=== PATIENT | female | born 1950 | race Caucasian/White ===

== ENCOUNTER 2020-06-28 11:40 | Emergency (ER) | payer MEDICARE, SELFPAY ==
[2020-06-28 12:15] VITALS: BP 159/103; PULSE 78; RESP 18; TEMP 36.6; O2SAT 97; BMI 17.7
--- NOTE | 2020-06-28 12:38 | XRR_ITS ---
PROCEDURE INFORMATION: Exam: XR Chest Exam date and time: 06/28/2020 12:56 PM Age: 69 years old Clinical indication: Chest pain; Type not specified; Prior surgery; Surgery type: Bakari, open heart, lung; Patient HX: HX of lung cancer, pain in chest and abdomen, bloody stools; Additional info: Upper abd/chest wall pain TECHNIQUE: Imaging protocol: XR of the chest. Views: 1 view. COMPARISON: CR Chest 1 [place] [id number] 11/18/2017 8:44 PM FINDINGS: Tubes, catheters and devices: A cardiac loop recorder projects on the left mid lung zone. Lungs: There is bilateral overinflation of the lungs with flattening of the diaphragm indicating emphysema. No pneumonia is seen. Pleural spaces: Unremarkable. No pleural effusion. No pneumothorax. Heart/Mediastinum: The patient has undergone coronary bypass surgery. The heart is not enlarged for the AP projection. Bones/joints: Unremarkable. Soft tissues: Unremarkable XR/XR chest 1V portable [id number] IMPRESSION: 1. Pulmonary emphysema. 2. No acute abnormality is seen in the chest.
--- NOTE | 2020-06-28 12:38 | XRR_ITS ---
PROCEDURE INFORMATION: Exam: XR Abdomen Exam date and time: 06/28/2020 12:56 PM Age: 69 years old Clinical indication: Prior surgery; Surgery type: Bakari, open heart, lung; Patient HX: HX of lung cancer, chest and abdomen pain, bloody stools; Additional info: Bloody stool TECHNIQUE: Imaging protocol: XR of the abdomen. Views: Frontal supine view of the abdomen. 1 View. COMPARISON: No relevant prior studies available. FINDINGS: Gastrointestinal tract: Normal. No bowel dilation. Vasculature: There is atherosclerotic calcification of the aorta and iliac arteries. Phleboliths are present in the left side of the pelvis. Bones/joints: Unremarkable. XR/XR KUB portable [id number] IMPRESSION: No acute abnormalities are seen.
--- NOTE | 2020-06-28 13:01 | ED_ITS ---
HPI - Back Pain/Injury General: Chief Complaint: Back Pain/Injury Stated Complaint: SEVERE BACK/LUNG PAIN Time Seen by Provider: 06/28/20 12:33 History of Present Illness: HPI Narrative: 69 yo female presents with severe back/lung pain. pt states this has been going on quite a while, but over last 4 days just cant take it anymore pt also states she is vomiting blood and having bloody stools. pt states her lung pain is right sided and was told she has lung cancer pt states she moved back into the area about 1 month ago and does not have a primary care provider. pt states she needs an antibiotic to make her lungs, bloody stool/vomiting better since she frequently qets this. pt also had numerous other long standing complaints. Associated symptoms: Deny abdominal pain, dysuria or fever(s) Review of Systems Const: Reports: other (See HPI ); Denies: fever(s) Eyes: Denies: change in vision Card: Reports: chest pain (chest wall ); Denies: irregular heart rhythm Resp: Denies: dyspnea GI: Reports: hematemesis and hematochezia; Denies: abdominal pain : Reports: flank pain; Denies: difficulty voiding or dysuria Skin/Breast: Denies: rash Neuro: Denies: headache(s) Physical Exam Const: COMMON NORMALS: patient oriented x3 and alert GENERAL APPEARANCE: ill appearing (chronic ), frail appearing and appears older than stated age HENMT: COMMON NORMALS: normocephalic HEAD & SCALP: normocephalic Resp: COMMON NORMALS: normal respiratory effort, No retractions and clear to auscultation bilaterally EFFORT & INSPECTION: Yes able to speak in complete sentences AUSCULTATION: clear to auscultation bilaterally Cardio: COMMON NORMALS: regular rate and regular rhythm RATE: regular rate RHYTHM: regular rhythm : COMMON NORMALS: Yes no CVA tenderness BLADDER/KIDNEY EXAM: Yes no CVA tenderness Back/Pelvis: COMMON NORMALS: no CVA tenderness Extremity: COMMON NORMALS: full ROM and capillary refill normal Neuro: COMMON NORMALS: patient oriented x3 SENSORIUM/ORIENTATION: Yes alert Psych: COMMON NORMALS: mental status grossly normal ATTITUDE: Yes aggressive Skin: COMMON NORMALS: no rashes or lesions noted GENERAL SKIN EXAM: no rashes or lesions noted Course Vital Signs: Vital signs: Vital Signs Temperature 97.9 F 06/28/20 12:15 Pulse Rate 76 06/28/20 14:09 Respiratory Rate 18 06/28/20 14:09 Blood Pressure 167/94 06/28/20 14:09 Pulse Oximetry 95 06/28/20 14:09 MDM - Back Pain/Injury MDM Narrative: Medical decision making narrative: pt with no acute finding on xrays, labs. While discussing lab results, pt very dramatic and now indicates pain in right lateral chest/abd wall and back pain. discussed with pt i will treat her with a muscle relaxant, toradol. i will prescribe her muscle relaxant, pt will need to luke care and follow with pcp for management of her chronic pain and medical conditions. Lab Data: Attestation: I reviewed the patient's lab results. Labs: Lab Results 06/28/20 06/28/20 06/28/20 Range/Units 13:00 13:00 13:00 WBC 5.6 (4.0-10.0) 10^3/ uL RBC 5.58 H (4.1-5.3) 10^6/u L Hgb 16.8 H (11.5-15.3) g/dL Hct 51.5 H (37.0-47.0) % MCV 92.3 (81-99) fL MCH 30.1 (28.0-34.0) pg MCHC 32.6 (30.0-36.0) g/dL RDW 12.5 (12.1-15.1) % Plt Count 220 (130-400) 10^3/c mm MPV 10.0 (7.4-10.4) fL Neut % (Auto) 65.1 % Lymph % (Auto) 22.0 % Petroleum % (Auto) 9.8 % Eos % (Auto) 1.8 % Baso % (Auto) 1.1 % Neut # (Auto) 3.68 (1.8-7.7) 10^3/u L Lymph # (Auto) 1.2 (0.8-4.8) 10^3/u L Petroleum # (Auto) 0.6 (0.2-0.9) 10^3/u L Eos # (Auto) 0.1 (0.0-0.8) 10^3/u L Baso # (Auto) 0.1 (0.0-0.1) 10^3/u L Nucleated RBC % (a uto) 0 % Nucleated RBCs # 0.0 /100WBC PT 12.90 (12.1-14.9) SECO NDS INR 0.94 (0.8-1.2) APTT 31.6 (23.9-36.7) SECO NDS Sodium 135 L (136-145) mmol/L Potassium 4.4 (3.5-5.1) mmol/L Chloride 98 (98-107) mmol/L Carbon Dioxide 26 (22-29) mmol/L Anion Gap 15.4 (5-19) BUN 10 (8-23) mg/dL Creatinine 0.7 (0.5-0.9) mg/dL GFR Calculation 83.2 L (90-130) mL/min Glucose 107 (65-115) mg/dL Calculated Osmolal ity 280 L (285-295) mOsm/k g Calcium 8.9 (8.5-10.5) mg/dL Total Bilirubin 0.4 (0.15-1.2) mg/dL AST 22 (0-32) U/L ALT 15 (0-33) U/L Alkaline Phosphata se 88 (35-105) IU/L Total Protein 7.0 (6.6-8.7) g/dL Albumin 4.3 (3.5-5.2) g/dL Globulin 2.7 (1.3-4.6) g/dL Lipase 40 (13-60) U/L Imaging Data^: CXR: Attestation: I personally reviewed and interpreted this imaging study as follows: My impression: no acute finding Radiologist's impression: XR/XR chest 1V portable [id number] IMPRESSION: 1. Pulmonary emphysema. 2. No acute abnormality is seen in the chest KUB: Attestation: I personally reviewed and interpreted this imaging study as follows: My impression: no acute findings Radiologist's impression: XR/XR KUB portable [id number] IMPRESSION: No acute abnormalities are seen. Discharge Plan Discharge Patient Disposition: Home Clinical Impression: Back pain Qualifiers: Back pain location: thoracic back pain Chronicity: chronic Back pain laterality: right Qualified Code(s): M54.6 - Pain in thoracic spine Condition: Stable Prescriptions: New cyclobenzaprine 5 mg tablet 5 mg PO Q8H Qty: 20 RF: 0 Discharge Orders: Discharge ED (Routine); Ordered 06/28/20 Ordered By: Sidney Raymond Discharge Diet: Usual diet Discharge Activity: Increase activity as tolerated Patient Instructions: Chronic Back Pain (ED), Opioid Safety Activity Restrictions/Additional Instructions: Please establish care with primary care provider for management of your pain and chronic medical conditions. 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
[2020-06-28 13:20] LABS: Basophils # 0.1 10^3/uL (0.0-0.1); Basophils % 1.1 %; Eosinophils # 0.1 10^3/uL (0.0-0.8); Eosinophils % 1.8 %; Hematocrit 51.5 % (37.0-47.0); Hemoglobin 16.8 g/dL (11.5-15.3); Lymphocytes # 1.2 10^3/uL (0.8-4.8); Mean Corpuscular HGB Conc 32.6 g/dL (30.0-36.0); Mean Corpuscular Hemoglobin 30.1 pg (28.0-34.0); Mean Corpuscular Volume 92.3 fL (81-99); Monocytes # 0.6 10^3/uL (0.2-0.9); Monocytes % 9.8 %; Neutrophils # 3.68 10^3/uL (1.8-7.7); Neutrophils % 65.1 %; Nucleated Red Blood Cells % 0 %; Platelet Count 220 10^3/cmm (130-400); Red Blood Count 5.58 10^6/uL (4.1-5.3); Red Cell Distribution Width 12.5 % (12.1-15.1); White Blood Count 5.6 10^3/uL (4.0-10.0)
[2020-06-28] MEDS: pantoprazole 40 mg SDV 80 MG IVP (13:22)
[2020-06-28 13:25] LABS: INR 0.94 (0.8-1.2)
[2020-06-28 13:26] LABS: Partial Thromboplastin Time 31.6 SECONDS (23.9-36.7)
[2020-06-28 13:34] LABS: Alanine Aminotransferase 15 U/L (0-33); Albumin Level 4.3 g/dL (3.5-5.2); Alkaline Phosphatase 88 IU/L (35-105); Anion Gap 15.4 (5-19); Aspartate Amino Transferase 22 U/L (0-32); Blood Urea Nitrogen 10 mg/dL (8-23); Calcium 8.9 mg/dL (8.5-10.5); Carbon Dioxide 26 mmol/L (22-29); Chloride 98 mmol/L (98-107); Globulin 2.7 g/dL (1.3-4.6); Glomerular Filtration Rate 83.2 mL/min (90-130); Glucose 107 mg/dL (65-115); Lipase 40 U/L (13-60); Osmolality Calculated 280 mOsm/kg (285-295); Potassium 4.4 mmol/L (3.5-5.1); Sodium 135 mmol/L (136-145); Total Bilirubin 0.4 mg/dL (0.15-1.2)
[2020-06-28] MEDS: ketorolac 30 mg/mL INJ IM (14:01)
[2020-06-28] MEDS: orphenadrine 30 mg/mL Inj 2 mL 60 MG IM (14:02)
[2020-06-28 14:09] VITALS: BP 167/94; PULSE 76; RESP 18; O2SAT 95
== END 2020-06-28 14:20 | disposition home or self-care (01) ==
PROVIDERS: Emergency Provider Student in an Organized Health Care Education/Training Program
DX: G89.29 Other chronic pain (principal); M54.6 Pain in thoracic spine; R07.9 Chest pain, unspecified
CPT/HCPCS: 71045; 74018; 80053; 83690; 85025; 85610; 85730; 96372; 99283; C9113; J1885; J2360

== ENCOUNTER 2021-01-24 13:08 | Outpatient (CLI) | payer MEDICARE, OTHER, SELFPAY ==
--- NOTE | 2021-01-24 13:16 | XR_ITS ---
WS: [id number] Exam: XR DEXA axial skeleton* [id number] Date/Time of Exam: 01/24/2021 1:18 PM Reason For Exam: AGE-RELATED OSTEOPOROSIS WITHOUT CURRENT PATHOLOGICAL FRACTU DEXA BONE DENSITOMETRY [employer] The L1-L4 bone mineral density measures 0.816 g/cm2. This corresponds to a T score of -3.0 and Z scor e of -0.8. Left femoral neck bone mineral density measures 0.573 g/cm2. This corresponds to T score of -3.4 and Z score of -1.6. Right femoral neck bone mineral density measures 0.571 g/cm2. This corresponds to a T score of -3.5 a nd Z score of -1.6. Mean femoral neck bone mineral density measures 0.572 g/cm2. This corresponds to a T score of -3.5 an d Z score of -1.6 XR/XR DEXA axial skeleton* [id number] IMPRESSION: Bone mineral density lies in the osteoporotic range. Refer to detailed summary .
--- NOTE | 2021-01-24 13:17 | CT_ITS ---
WS: [id number] Exam: CT chest abd pel w con* Date/Time of Exam: 01/24/2021 1:18 PM Reason For Exam: HISTORY OF MALIGNANT NEOPLASM OF LUNG, LOWER ABDOMINAL PAIN DLP: 1228.[address] scans at [facility] use at least one of these dose optimization techniques: automated e xposure control; mA and/or kV adjustment per patient size (includes targeted exams where dose is matc hed to clinical indication); or iterative reconstruction. CT scan of the chest abdomen pelvis was performed in axial plane with sagittal coronal reformatted im ages. IV contrast was administered. CT scan of the chest. Compared to prior CTA of the chest performed 11/18/2017. The lungs are fully expanded. Mild emphysematous changes are noted. No suspicious pulmonary mass or n odule. There is fibrous scarring in the right lower lobe. The thoracic aorta is normal in caliber. 11 mm short axis anterior pericarinal lymph node noted which is unchanged. No other lymphadenopathy. Th e airway is patent. Coronary artery calcifications. No pericardial or pleural effusion. No destructiv e bone lesions are seen. Signs of previous median sternotomy. Normal thyroid tissue. No destructive b one lesions are seen. CT/CT chest abd pel w con* IMPRESSION: 1. No pulmonary mass. 11 mm short axis anterior pericarinal lymph node stable i n appearance. No other adenopathy. 2. Other minor nonacute findings as detailed above. CT scan of the abdomen and pelvis with contrast. The liver, spleen, and stomach are unremarkable. Prominent main pancreatic duct noted measuring 3.8 mm at greatest diameter. No pancreatic enlargement or mass . The abdominal aorta is normal in caliber. The portal vein and IVC are patent. The kidneys function and drain normally. There is ptosis of the right kidney. No renal obstruction seen. Small partially calcified stone in the dependent gal lbladder. No sign of acute cholecystitis. Small bowel loops are not dilated. Pr ominent common bile duct at the level of the pancreatic head measuring about 1 cm greatest diameter. No significant intrahepatic ductal dilatation. Moderate a mount retained stool in the colon. There is diverticulosis of the sigmoid colon with generalized bowel wall thickening. Acute diverticulitis is not excluded. No sign of abscess. No pelvic lymphadenopathy or mass. No free air in the abdom en or pelvis. Moderately distended urinary bladder. The uterus and ovaries are surgically absent. No destructive bone lesions or significant abdominal wall de fects. IMPRESSION: 1. Sigmoid diverticuli with bowel wall thickening of the sigmoid colon which ma y indicate early acute diverticulitis. No perforation or abscess is seen. 2. Dilatation of the common bile duct measuring up to 1 cm greatest diameter an d dilatation of the main pancreatic duct measuring 3.8 mm at greatest diameter. Biliary obstruction secondary to retained stone or neoplasm might be a conside ration. 3. Small partially calcified subcentimeter stone in the dependent gallbladder. Constipation.
[2021-01-24 15:40] LABS: Blood Urea Nitrogen 18 mg/dL (8-23)
[2021-01-24] MEDS: iohexol 300 mg/mL 50 mL Btl PO (15:47)
[2021-01-24] MEDS: iodixanol 320 mg/mL 100mL Btl IV (15:48)
== END 2021-01-24 13:09 | disposition home or self-care (01) ==
PROVIDERS: Visit Provider Nurse Practitioner Family
DX: Z85.118 Personal history of other malignant neoplasm of bronchus and lung (principal); R10.30 Lower abdominal pain, unspecified; M81.0 Age-related osteoporosis without current pathological fracture; K57.30 Diverticulosis of large intestine without perforation or abscess without bleeding
CPT/HCPCS: 71260; 74177; 77080; 82565; 84520; Q9967

== ENCOUNTER 2022-12-20 09:23 | Emergency (ER) | payer MEDICARE, SELFPAY ==
[2022-12-20 09:39] VITALS: BP 137/77; PULSE 65; RESP 18; TEMP 36.4; O2SAT 94; BMI 22.6
--- NOTE | 2022-12-20 09:48 | XRR_ITS ---
PROCEDURE INFORMATION: Exam: XR Chest Exam date and time: 12/20/2022 9:57 AM Age: 72 years old Clinical indication: Cough and shortness of breath; Prior surgery; Surgery date: 6+ months; Surgery type: Open heart; Patient HX: HX of lung cancer; Additional info: Cough/congestion TECHNIQUE: Imaging protocol: Radiologic exam of the chest. Views: 1 view. COMPARISON: 1. CT chest abdpel w/*[id number] 01/24/2021 3:44 PM 2. CR XR chest 1V portable [id number] 06/28/2020 12:40 PM FINDINGS: Tubes, catheters and devices: Left chest loop recorder. Lungs: Mild peripheral right basilar scarring. No consolidation. Pleural spaces: Unremarkable. No pleural effusion. No pneumothorax. Heart/Mediastinum: Unremarkable. No cardiomegaly. Vasculature: Aortic atherosclerotic calcification. Bones/joints: Prior median sternotomy. XR/XR chest 1V portable [id number] IMPRESSION: No acute findings.
--- NOTE | 2022-12-20 09:50 | W.ED.SOB ---
HPI - SOB/Dyspnea General: Chief Complaint: Shortness of Breath/Dyspnea Stated Complaint: SOB/cough Time Seen by Provider: 12/20/22 09:25 Source: patient Mode of arrival: ambulatory Limitations: no limitations History of Present Illness: HPI Narrative: Patient is a 72-year-old female with history of COPD/emphysema currently on Trelegy and chronic everyday smoking here for complaints of dyspnea. She states she chronically has some degree of baseline dyspnea but states symptoms have worsened over the past several days. She states she normally does not wear oxygen at home. States she recently moved to the area and does not have pulmonology set up yet-states she does have PCP. As previously mentioned, patient continues to smoke daily. She states she has had increased cough/congestion. She arrives with stable vital signs satting approximately 94% on room air. She denies chest pain. She has not noted any fevers. No sick contacts. MD elicited complaint: shortness of breath Pertinent past history: COPD and pneumonia Onset (ago): day(s) Timing: constant Severity: moderate Exacerbating factors: exertion Relieving factors: nothing Known history of: COPD and recurrent pneumonia Associated symptoms: Reports chest congestion; Deny abdominal pain, chest pain, dizziness, fever(s), hemoptysis, lightheadedness, orthopnea, palpitations or syncope Treatment prior to arrival: none Related Data: Home oxygen amount: none Review of Systems Const: Denies: fever(s), chills, body aches, fatigue or malaise Card: Reports: dyspnea on exertion (chronic); Denies: chest pain, palpitations, irregular heart rhythm, swelling of feet/ankles, lightheadedness, syncope, pre-syncope, orthopnea, leg pain with exertion or acrocyanosis Resp: Reports: dyspnea (acute on chronic), productive cough and chest congestion; Denies: pain on inspiration, change in phlegm color or hemoptysis GI: Denies: abdominal pain Musc: Denies: back pain Neuro: Denies: dizziness Physical Exam Const: COMMON NORMALS: no acute distress, patient oriented x3, no limitations and alert GENERAL APPEARANCE: cooperative NUTRITIONAL APPEARANCE: thin ORIENTATION/CONSCIOUSNESS: Yes awake, Yes oriented to person, Yes oriented to place and Yes oriented to time Chest: COMMONS NORMALS: normal inspection of the chest and normal palpation of entire chest wall Resp: COMMON NORMALS: normal respiratory effort EFFORT & INSPECTION: Yes able to speak in complete sentences AUSCULTATION: rhonchi (somewhat cleared with coughing) throughout and wheezes Cardio: COMMON NORMALS: regular rate and regular rhythm RATE: regular rate RHYTHM: regular rhythm Extremity: COMMON NORMALS: no clubbing, cyanosis or edema, no calf tenderness and no pedal edema GENERAL: Yes normal exam except as noted Neuro: COMMON NORMALS: patient oriented x3 SENSORIUM/ORIENTATION: Yes alert, Yes oriented to person, Yes oriented to place and Yes oriented to time Course Vital Signs: Vital signs: Vital Signs Temperature 97.5 F L 12/20/22 09:39 Pulse Rate 59 L 12/20/22 10:34 Respiratory Rate 20 H 12/20/22 10:34 Blood Pressure 137/77 12/20/22 09:39 Pulse Oximetry 94 12/20/22 10:34 Oxygen Delivery Me thod Room Air 12/20/22 10:34 MDM - SOB/Dyspnea Medical Decision Making Patient reporting improvement after breathing treatment/dexamethasone. CXR is normal. Blood work is nonactionable. We will place her on steroids and Levaquin for a COPD exacerbation. We will get her set up with pulmonology for treatment/maintenance of her COPD/emphysema. She also states she will follow-up with primary care. Return ED precautions given. Lab Data 12/20/22 09:55 12/20/22 09:55 Labs/Radiology: Radiology Impressions Chest X-Ray 12/20/22 09:48 IMPRESSION: No acute findings. Laboratory Results WBC 14.40 10^3/uL (3.29-11.43) H 12/20/22 09:55 RBC 6.08 10^6/uL (3.85-5.65) H 12/20/22 09:55 Hgb 17.70 g/dL (11.27-16.99) H 12/20/22 09:55 Hct 55.1 % (36-47) H 12/20/22 09:55 MCV 90.6 fl (85-98) 12/20/22 09:55 MCH 29.1 pg (27-33) 12/20/22 09:55 MCHC 32.1 g/dL (30-55) 12/20/22 09:55 RDW 14.6 % (12.1-15.1) 12/20/22 09:55 Plt Count 300 10^3/cmm (157-399) 12/20/22 09:55 MPV 10.3 fL (7.4-10.4) 12/20/22 09:55 Neut % (Auto) 79.9 % 12/20/22 09:55 Lymph % (Auto) 10.6 % 12/20/22 09:55 [place] % (Auto) 5.9 % 12/20/22 09:55 Eos % (Auto) 2.6 % 12/20/22 09:55 Baso % (Auto) 0.7 % 12/20/22 09:55 Neut # (Auto) 11.51 10^3/uL (1.8-7.7) H 12/20/22 09:55 Lymph # (Auto) 1.5 10^3/uL (0.8-4.8) 12/20/22 09:55 [place] # (Auto) 0.9 10^3/uL (0.2-0.9) 12/20/22 09:55 Eos # (Auto) 0.4 10^3/uL (0.0-0.8) 12/20/22 09:55 Baso # (Auto) 0.1 10^3/uL (0.0-0.1) 12/20/22 09:55 Nucleated RBC % (auto) 0 % 12/20/22 09:55 Nucleated RBCs # 0.0 /100WBC 12/20/22 09:55 Sodium 136 mmol/L (136-145) 12/20/22 09:55 Potassium 3.8 mmol/L (3.5-5.1) 12/20/22 09:55 Chloride 92 mmol/L (98-107) L 12/20/22 09:55 Carbon Dioxide 34 mmol/L (22-29) H 12/20/22 09:55 Anion Gap 13.8 (5-19) 12/20/22 09:55 BUN 19 mg/dL (8-23) 12/20/22 09:55 Creatinine 1.0 mg/dL (0.5-0.9) H 12/20/22 09:55 GFR Calculation Not Reportable 12/20/22 09:55 Glucose 75 mg/dL (65-115) 12/20/22 09:55 Calculated Osmolality 283 mOsm/kg (285-295) L 12/20/22 09:55 Calcium 9.7 mg/dL (8.5-10.5) 12/20/22 09:55 Total Bilirubin 0.9 mg/dL (0.15-1.2) 12/20/22 09:55 AST 20 U/L (0-32) 12/20/22 09:55 ALT 16 U/L (0-33) 12/20/22 09:55 Alkaline Phosphatase 123 U/L (35-105) H 12/20/22 09:55 Total Protein 8.7 g/dL (6.6-8.7) 12/20/22 09:55 Albumin 4.9 g/dL (3.5-5.2) 12/20/22 09:55 Globulin 3.8 g/dL (1.3-4.6) 12/20/22 09:55 Procalcitonin 0.04 ng/mL (0-0.5) 12/20/22 09:55 All radiology interpretation(s) finalized by discharge Discharge Plan Discharge Patient Disposition: Home Clinical Impression: Acute exacerbation of chronic obstructive airways disease Condition: Stable Prescriptions: New prednisone 10 mg tablet 10 mg PO DAILY 10 Days Qty: 27 0RF Rx Instructions: 6 tabs on days 1-2, 5 tabs on days 3, 4 tabs on day 4, 3 tabs on day 5, 2 tabs on day 6, 1 tab on day 7 levofloxacin 500 mg tablet 500 mg PO DAILY 7 Days Qty: 7 0RF No Action buspirone 15 mg tablet 15 mg PO BID atorvastatin 40 mg tablet 40 mg PO QPM estradiol 0.01 % (0.1 mg/gram) cream 1 appful vaginal Q7D PRN (Reason: UNKNOWN) cetirizine 10 mg Tablet 10 mg PO DAILY alendronate 70 mg tablet 70 mg PO Q7D metoprolol tartrate 50 mg tablet 50 mg PO QAM pregabalin 150 mg capsule 150 mg PO TID Discharge Orders: Discharge ED (Routine); Ordered 12/20/22 Ordered By: Brenna Littlejohn Coding Level of Care Code ED [employer] Clerk for [employer]
[2022-12-20 10:04] LABS: Basophils # 0.1 10^3/uL (0.0-0.1); Basophils % 0.7 %; Eosinophils # 0.4 10^3/uL (0.0-0.8); Eosinophils % 2.6 %; Hematocrit 55.1 % (36-47); Lymphocytes # 1.5 10^3/uL (0.8-4.8); Lymphocytes % 10.6 %; Mean Corpuscular HGB Conc 32.1 g/dL (30-55); Mean Corpuscular Hemoglobin 29.1 pg (27-33); Mean Corpuscular Volume 90.6 fl (85-98); Mean Platelet Volume 10.3 fL (7.4-10.4); Monocytes # 0.9 10^3/uL (0.2-0.9); Monocytes % 5.9 %; Neutrophils # 11.51 10^3/uL (1.8-7.7); Neutrophils % 79.9 %; Nucleated Red Blood Cells % 0 %; Platelet Count 300 10^3/cmm (157-399); Red Blood Count 6.08 10^6/uL (3.85-5.65); Red Cell Distribution Width 14.6 % (12.1-15.1)
--- NOTE | 2022-12-20 10:15 | PC.PHAR ---
PT STATES SHE WOULD LIKE ANY NEW PRESCRIPTIONS FROM TODAY TO BE SENT TO [facility] HERE IN [place]. SHE WILL NOT BE BACK TO [place] FOR A WHILE
[2022-12-20 10:25] LABS: Alanine Aminotransferase 16 U/L (0-33); Albumin Level 4.9 g/dL (3.5-5.2); Alkaline Phosphatase 123 U/L (35-105); Anion Gap 13.8 (5-19); Aspartate Amino Transferase 20 U/L (0-32); Blood Urea Nitrogen 19 mg/dL (8-23); Calcium 9.7 mg/dL (8.5-10.5); Carbon Dioxide 34 mmol/L (22-29); Chloride 92 mmol/L (98-107); Globulin 3.8 g/dL (1.3-4.6); Glucose 75 mg/dL (65-115); Osmolality Calculated 283 mOsm/kg (285-295); Potassium 3.8 mmol/L (3.5-5.1); Sodium 136 mmol/L (136-145); Total Bilirubin 0.9 mg/dL (0.15-1.2); Total Protein 8.7 g/dL (6.6-8.7)
[2022-12-20] MEDS: ipratropium-albuterol 3 mL Neb INHALATION (10:31)
[2022-12-20 10:32] LABS: Procalcitonin 0.04 ng/mL (0-0.5)
[2022-12-20 10:34] VITALS: PULSE 59; RESP 20; O2SAT 94
--- NOTE | 2022-12-20 11:21 | PC.SOCIAL ---
Pulmonology Referral Referral to clinic at this time.
[2022-12-20] MEDS: dexamethasone 10 mg/mL INJ 6 MG IVP (11:28)
--- NOTE | 2022-12-20 13:12 | PC.SOCIAL ---
Pulmonology Referral Referral to clinic at this time. Clinic to contact patient with appt date/time.
== END 2022-12-20 11:34 | disposition home or self-care (01) ==
PROVIDERS: Emergency Provider Physician Assistant
DX: J44.1 Chronic obstructive pulmonary disease with (acute) exacerbation (principal)
CPT/HCPCS: 71045; 80053; 84145; 85025; 94640; 96374; 99284; J1100

== ENCOUNTER → 2023-11-30 09:35 | Outpatient (BNVA) | payer MEDICARE, SELFPAY | PROVIDERS: Visit Provider Emergency Medicine | DX: M79.672 Pain in left foot (principal); M19.072 Primary osteoarthritis, left ankle and foot | CPT/HCPCS: 73630 ==

== ENCOUNTER 2023-12-03 10:04 | Outpatient (RCR) | payer MEDICARE, SELFPAY | END 2023-12-10 23:59 | disposition home or self-care (01) | LOC: SST 10:04 | PROVIDERS: Visit Provider Registered Nurse | DX: I69.328 Other speech and language deficits following cerebral infarction (principal) | CPT/HCPCS: 92523; 92610 ==

== ENCOUNTER 2023-12-11 06:30 | Outpatient (RCR) | payer MEDICARE, SELFPAY | END 2024-01-10 23:59 | disposition home or self-care (01) | LOC: SST 06:30 | PROVIDERS: Visit Provider Registered Nurse | DX: I69.328 Other speech and language deficits following cerebral infarction (principal) | CPT/HCPCS: 92507 ==

== ENCOUNTER 2024-01-11 06:00 | Outpatient (RCR) | payer MEDICARE, SELFPAY | END 2024-02-09 23:59 | disposition home or self-care (01) | LOC: SST 06:00 | PROVIDERS: PCP Family Medicine; Visit Provider Registered Nurse | DX: I69.328 Other speech and language deficits following cerebral infarction (principal) | CPT/HCPCS: 92507 ==

== ENCOUNTER → 2024-01-23 12:10 | Outpatient (BNVA) | payer MEDICARE, SELFPAY | PROVIDERS: Visit Provider Registered Nurse Neonatal Intensive Care | DX: R09.89 Other specified symptoms and signs involving the circulatory and respiratory systems (principal) | CPT/HCPCS: 71046 ==

== ENCOUNTER 2024-01-29 12:36 | Outpatient (RCR) | payer MEDICARE, SELFPAY | END 2024-02-09 23:59 | disposition home or self-care (01) | LOC: SPO 12:36 | PROVIDERS: PCP Family Medicine; Visit Provider Nurse Practitioner Family | DX: G81.91 Hemiplegia, unspecified affecting right dominant side (principal) | CPT/HCPCS: 97110; 97112; 97167; 97530 ==

== ENCOUNTER 2024-02-10 06:00 | Outpatient (RCR) | payer MEDICARE, SELFPAY | END 2024-03-11 23:59 | disposition home or self-care (01) | LOC: SST 06:00 | PROVIDERS: PCP Family Medicine; Visit Provider Registered Nurse | DX: I69.328 Other speech and language deficits following cerebral infarction (principal) | CPT/HCPCS: 92507 ==

== ENCOUNTER 2024-02-10 06:00 | Outpatient (RCR) | payer MEDICARE, SELFPAY | END 2024-03-11 23:59 | disposition home or self-care (01) | LOC: SPO 06:00 | PROVIDERS: PCP Family Medicine; Visit Provider Nurse Practitioner Family | DX: G81.91 Hemiplegia, unspecified affecting right dominant side (principal) | CPT/HCPCS: 97112 ==

== ENCOUNTER → 2024-04-02 11:00 | Outpatient (BNVA) | payer MEDICARE, SELFPAY | PROVIDERS: PCP Family Medicine; Referring Provider Registered Nurse; Visit Provider Specialist | DX: Z86.73 Personal history of transient ischemic attack (TIA), and cerebral infarction without residual deficits (principal); F17.210 Nicotine dependence, cigarettes, uncomplicated | CPT/HCPCS: 99205 ==

== ENCOUNTER → 2024-07-31 14:16 | Outpatient (BNVA) | payer MEDICARE, SELFPAY | PROVIDERS: PCP Family Medicine; Visit Provider Specialist | DX: Z86.73 Personal history of transient ischemic attack (TIA), and cerebral infarction without residual deficits (principal); Z95.828 Presence of other vascular implants and grafts; F17.200 Nicotine dependence, unspecified, uncomplicated | CPT/HCPCS: 99214 ==